=== PATIENT | male | born 1955 | race Caucasian/White ===

== ENCOUNTER 2020-02-02 17:47 | Emergency (ER) | payer MEDICARE, MEDICAID, SELFPAY ==
[2020-02-02] VITALS (15 sets, daily range): BP systolic 104–114; BP diastolic 56–79; PULSE 72–89; RESP 20–26; TEMP 36.2; O2SAT 95–99; BMI 25.8
--- NOTE | 2020-02-02 18:15 | DI.RAD.S_ITS ---
PROCEDURE: XR CHEST 1V INDICATIONS: shortness of breath TECHNIQUE: One view of the chest was acquired. COMPARISON: [facility], , CHEST 1 VIEW, 06/23/2017, 13:11. FINDINGS: Surgical changes and devices: None. Lungs and pleura: Lungs are abnormal with asymmetric right greater than left patchy airspace disease and a subpulmonic pleural effusion or dense consolidation at the right lung base is present.. No loculated pleural effusions or pneumothorax. Mediastinum: Mediastinal contours appear normal. Heart size is normal. Bones and chest wall: No suspicious bony lesions. Overlying soft tissues appear unremarkable. IMPRESSION: Patchy bilateral alveolar edema pattern with either right lower lobe pneumonia or right subpulmonic pleural effusion at the lower 3rd of the right hemithorax. No pneumothorax found. Dictated by: Jose Chapin M.D. on 02/02/2020 at 18:36 Approved by: Jose Chapin M.D. on 02/02/2020 at 18:37
--- NOTE | 2020-02-02 18:19 | ED.SOB ---
HPI - SOB/Dyspnea General Chief Complaint: Shortness of Breath/Dyspnea Stated Complaint: Breathing Problems Time Seen by Provider: 02/02/20 18:03 Source: patient Mode of arrival: Wheelchair Limitations: no limitations History of Present Illness HPI Narrative: 64M nonsmoker with history of CAD, CKD (HD , , ) presents with gradually worsening SOB over the past month. He denies fever, chills, N/V. He did not complete his full run of HD on Sunday. He has had some cough but denies productive sputum or hemoptysis. He states his SOB is worse with exertion and laying flat. Of note, he has prescreening for possible cardiac stent placement in a few weeks and had a L hip revision one month ago. Patient denies exposure to COVID and was last tested about 10 days ago. Finally, patient had alterations in Spironolactone a few weeks ago as his pressures have been running low. He initially contacted his primary care provider and was then referred to the walk-in clinic for evaluation, finally being referred to the emergency department for a more rapid and complete assessment of his (likely) multifactorial dyspnea. MD Complaint: shortness of breath Onset (ago): day(s) Severity: moderate Consistency/Duration: constant Relieving factors: rest Exacerbating factors: lying flat and exertion Treatment prior to arrival: none Related Data Home oxygen amount: none Home Medications Medication Instructions Recorded Confirmed VITAMIN D (Vitamin D3) 2,000 units PO QDAY #0 06/23/17 amlodipine [Norvasc] 5 mg PO QDAY #0 06/23/17 aspirin 81 mg PO QDAY #0 06/23/17 diclofenac sodium 50 mg PO QDAY #0 06/23/17 fluticasone propionate 1 spray INTRANASAL BID #0 06/23/17 metoprolol succinate 50 mg PO QDAY #0 06/23/17 pantoprazole 40 mg PO QDAY #0 06/23/17 pramipexole [Mirapex] 25 mg PO QDAY #0 06/23/17 rosuvastatin [Crestor] 10 mg PO QDAY #0 06/23/17 sevelamer carbonate [Renvela] 800 mg PO QDAY #0 06/23/17 terazosin 10 mg PO QDAY #0 06/23/17 Allergies Allergy/AdvReac Type Severity Reaction Status Date / Time lisinopril [LISINOPRIL] AdvReac Unknown COUGH Unverified 06/20/17 12:43 Review of Systems Constitutional Constitutional: Denies chills, Denies fatigue, Denies fever(s), Denies frequent falls, Denies lethargy and Denies weakness Eyes Eyes: Denies change in vision, Denies eye discharge, Denies irritation and Denies loss of vision ENT Ears, Nose, Mouth, and Throat: Denies change in voice, Denies dizziness, Denies neck pain, Denies sore throat and Denies throat swelling Cardiovascular Cardiovascular: Denies chest pain, Denies irregular heart rhythm, Denies lightheadedness, Denies palpitations, Reports dyspnea, Denies dyspnea on exertion and Denies orthopnea Respiratory Respiratory: Reports cough, Reports dyspnea, Denies dyspnea on exertion and Denies wheezing Gastrointestinal Gastrointestinal: Denies abdominal pain, Denies change in bowel habits, Denies diarrhea, Denies nausea and Denies vomiting Musculoskeletal Musculoskeletal: Denies neck pain and Denies numbness Integumentary/Breasts Skin/Breast: Denies pruritus, Denies erythema, Denies rash and Denies wounds Neurologic Neurologic: Denies behavioral changes, Denies confusion, Denies dizziness, Denies frequent falls, Denies loss of vision, Denies numbness and Denies weakness Psychiatric Psychiatric: Denies anxiety, Denies behavioral changes, Denies confusion, Denies depression, Denies homicidal ideation and Denies suicidal ideation Endocrine Endocrine: Denies fatigue, Denies flushing and Denies palpitations Hematologic/Lymphatic Hematologic/Lymphatic: Denies easy bruising Allergic/Immunologic Allergic/Immunologic: Denies urticaria, Denies throat swelling and Denies wheezing Patient History Social History Smoking Status: Never smoker Smoking Status: Never smoker alcohol intake frequency: 0-2 drinks per day Substance Use Type: does not use Exam Narrative Exam Narrative: GENERAL: [64] year old patient appears older than stated age. Obviously chronically ill but no evidence of significant respiratory distress while at rest. HEAD: Atraumatic. Normocephalic. EYES: Pupils equal round and reactive. Extraocular motions intact. No scleral icterus. No injection or drainage. ENT: Nose without bleeding, purulent drainage. Throat without erythema, tonsillar hypertrophy or exudate. Airway patent. NECK: Trachea midline. Non tender CARDIOVASCULAR: Regular rate and rhythm without murmurs, gallops, or rubs. RESPIRATORY: No significant work of breathing, crackles noted in both bases. GASTROINTESTINAL: Abdomen soft, non-tender, nondistended. EXTREMITIES: 2+ pitting edema B/L LE. Palpable thrill left arm BACK: Nontender without deformity or crepitance. No flank tenderness. NEURO: AOx3. SKIN: No rash or erythema of visible areas Initial Vital Signs Initial Vital Signs: Vital Signs Pulse Rate 84 02/02/20 18:02 Respiratory Rate 22 02/02/20 18:02 Pulse Oximetry 98 02/02/20 18:02 Course Orders Ordered: ED Orders 02/02/20 18:14 Consult to Respiratory Therapy Evaluate & Treat EKG-12 Lead Stat 02/02/20 18:15 XR chest 1V Stat 02/02/20 18:20 Complete Blood Count AUTO DIFF Stat Comprehensive Metabolic Panel Stat Lactate (Lactic Acid) Stat Magnesium Stat NT-proBNP (BNP-Adult 18+) Stat Phosphorous Stat Procalcitonin Stat Prothrombin Time INR Stat Troponin & CK Cardiac Panel Stat 02/02/20 19:39 CT angio chest PE protocol Stat 02/02/20 19:40 COVID19 Stat 02/02/20 19:41 Blood Culture Stat 02/02/20 19:45 Sputum Culture Stat 02/02/20 20:32 EKG-12 Lead Stat Discontinued Medications Acetaminophen (Acetaminophen 325 Mg Tablet) 650 mg PO NOW ONE Stop: 02/02/20 20:29 Last Admin: 02/02/20 20:46 Dose: 650 mg Documented by: JOSE LUIS Aspirin (Aspirin 81 Mg Chew Tab) 324 mg PO NOW ONE Stop: 02/02/20 21:32 Last Admin: 02/02/20 22:32 Dose: 324 mg Documented by: JOSE LUIS Ceftriaxone Sodium/Dextrose (Rocephin) 1 gm in 50 mls @ 100 mls/hr IV NOW ONE Stop: 02/02/20 19:43 Last Infusion: 02/02/20 22:14 Dose: 0 mls/hr Documented by: JOSE LUIS Infusion: 02/02/20 20:13 Dose: 0 mls/hr Documented by: JOSE LUIS Admin: 02/02/20 19:37 Dose: 100 mls/hr Documented by: JOSE LUIS Azithromycin 500 mg/ Dextrose 250 mls @ 250 mls/hr IV NOW ONE Stop: 02/02/20 20:30 Last Infusion: 02/02/20 22:37 Dose: 0 mls/hr Documented by: Admin: 02/02/20 20:46 Dose: 250 mls/hr Documented by: JOSE LUIS Consultations Consultation #1: initial call to nephrology to discuss IV contrast in this patient, he quickly states yes. Also discussed that patient will be coming to [place] for admission. No need for emergent HD Consultation #2: [id number] - call to cardiology at [facility] 2114 - repeat call to cardio to discuss troponin prior to hospitalist 2129 - repeat page to cardio No immediate concern for Troponin. Recommends addressing volume overload while following Consultation #3: Dr. Woods ([place] hospitalist) happy to accept Vital Signs Vital signs: Vital Signs - 8 hr 02/02/20 18:02 02/02/20 18:04 02/02/20 18:30 Temperature 97.1 F L Pulse Rate 84 89 80 Respiratory Rate 22 20 24 Blood Pressure 114/79 Pulse Oximetry 98 95 02/02/20 19:00 02/02/20 19:30 02/02/20 19:58 Temperature Pulse Rate 80 81 84 Respiratory Rate 21 24 24 Blood Pressure 105/64 Pulse Oximetry 02/02/20 20:00 02/02/20 20:30 02/02/20 21:00 Temperature Pulse Rate 84 81 83 Respiratory Rate 24 24 25 H Blood Pressure Pulse Oximetry 98 96 02/02/20 21:30 02/02/20 22:00 02/02/20 22:27 Temperature Pulse Rate 82 78 83 Respiratory Rate 24 20 Blood Pressure Pulse Oximetry 96 95 02/02/20 22:30 02/02/20 22:53 02/02/20 23:00 Temperature Pulse Rate 81 73 72 Respiratory Rate 26 H 22 21 Blood Pressure 104/56 L Pulse Oximetry 99 MDM - SOB/Dyspnea Lab Data Result diagrams: 02/02/20 18:20 02/02/20 18:20 Labs: Lab Results 02/02/20 02/02/20 02/02/20 Range/Units 18:20 18:20 18:20 WBC 6.3 (4.5-11.0) X10^3/uL RBC 3.73 L (4.5-5.9) X10^6/uL Hgb 10.1 L (13.5-17.5) g/dL Hct 32.7 L (41-53) % MCV 87.5 (80-100) fL MCH 27.1 (26-34) PG MCHC 30.9 (30-36) % RDW 18.2 H (11.6-14.8) % Plt Count 236 (150-400) X10^3/uL Neut % (Auto) 79.3 H (50-75) % Lymph % (Auto) 11.1 L (25-40) % [place] % (Auto) 8.0 (3-14) % Eos % (Auto) 0.9 L (2-4) % Baso % (Auto) 0.7 (0-2) % Neut # (Auto) 5000 (9690-6606) /uL Lymph # (Auto) 700 L (7392-6043) /uL [place] # (Auto) 500 (0-900) /uL Eos # (Auto) 100 (0-450) /uL Baso # (Auto) 0 (0-100) /uL PT 18.2 H (10.1-12.7) SECONDS INR 1.6 H (0.9-1.3) Sodium (137-145) mmol/L Potassium (3.4-5.1) mmol/L Chloride (98-107) mmol/L Carbon Dioxide (22-32) mmol/L BUN (9-20) mg/dL Creatinine (0.66-1.25) mg/dL Estimated GFR (>60) mL/min BUN/Creatinine Ratio (6-22) Glucose (80-110) mg/dL Lactate (0.7-2.1) mmol/L Calcium (8.4-10.2) mg/dL Phosphorus 8.1 H (2.3-3.7) mg/dL Magnesium 2.3 (1.6-2.3) mg/dL Total Bilirubin (0.2-1.3) mg/dL AST (17-59) IU/L ALT (<50) IU/L Alkaline Phosphatase (38-126) U/L Total Creatine Kinase 45 L (55-170) U/L CK-MB (CK-2) TNP CK-MB (CK-2) Rel Index TNP Troponin I 2.660 H* (0.01-0.034) ng/mL NT-Pro-B Natriuret Pep [id number] H (<125) pg/mL Total Protein (6.3-8.2) g/dL Albumin (3.5-5.0) g/dL Globulin (1.7-4.1) g/dL Albumin/Globulin Ratio (1.0-2.8) Procalcitonin (<0.5) ng/mL COVID-19 PCR (Negative) 02/02/20 02/02/20 02/02/20 Range/Units 18:20 18:20 18:20 WBC (4.5-11.0) X10^3/uL RBC (4.5-5.9) X10^6/uL Hgb (13.5-17.5) g/dL Hct (41-53) % MCV (80-100) fL MCH (26-34) PG MCHC (30-36) % RDW (11.6-14.8) % Plt Count (150-400) X10^3/uL Neut % (Auto) (50-75) % Lymph % (Auto) (25-40) % [place] % (Auto) (3-14) % Eos % (Auto) (2-4) % Baso % (Auto) (0-2) % Neut # (Auto) (8451-2109) /uL Lymph # (Auto) (2822-5080) /uL [place] # (Auto) (0-900) /uL Eos # (Auto) (0-450) /uL Baso # (Auto) (0-100) /uL PT (10.1-12.7) SECONDS INR (0.9-1.3) Sodium 140 (137-145) mmol/L Potassium 5.6 H (3.4-5.1) mmol/L Chloride 99 (98-107) mmol/L Carbon Dioxide 26 (22-32) mmol/L BUN 65 H (9-20) mg/dL Creatinine 8.99 H* (0.66-1.25) mg/dL Estimated GFR 6.0 L (>60) mL/min BUN/Creatinine Ratio 7.2 (6-22) Glucose 105 (80-110) mg/dL Lactate 1.6 (0.7-2.1) mmol/L Calcium 9.2 (8.4-10.2) mg/dL Phosphorus (2.3-3.7) mg/dL Magnesium (1.6-2.3) mg/dL Total Bilirubin 0.6 (0.2-1.3) mg/dL AST 206 H (17-59) IU/L ALT 113 H (<50) IU/L Alkaline Phosphatase 96 (38-126) U/L Total Creatine Kinase (55-170) U/L CK-MB (CK-2) CK-MB (CK-2) Rel Index Troponin I (0.01-0.034) ng/mL NT-Pro-B Natriuret Pep (<125) pg/mL Total Protein 7.4 (6.3-8.2) g/dL Albumin 3.9 (3.5-5.0) g/dL Globulin 3.5 (1.7-4.1) g/dL Albumin/Globulin Ratio 1.1 (1.0-2.8) Procalcitonin 0.48 (<0.5) ng/mL COVID-19 PCR (Negative) 02/02/20 Range/Units 19:40 WBC (4.5-11.0) X10^3/uL RBC (4.5-5.9) X10^6/uL Hgb (13.5-17.5) g/dL Hct (41-53) % MCV (80-100) fL MCH (26-34) PG MCHC (30-36) % RDW (11.6-14.8) % Plt Count (150-400) X10^3/uL Neut % (Auto) (50-75) % Lymph % (Auto) (25-40) % [place] % (Auto) (3-14) % Eos % (Auto) (2-4) % Baso % (Auto) (0-2) % Neut # (Auto) (3156-2133) /uL Lymph # (Auto) (5026-1466) /uL [place] # (Auto) (0-900) /uL Eos # (Auto) (0-450) /uL Baso # (Auto) (0-100) /uL PT (10.1-12.7) SECONDS INR (0.9-1.3) Sodium (137-145) mmol/L Potassium (3.4-5.1) mmol/L Chloride (98-107) mmol/L Carbon Dioxide (22-32) mmol/L BUN (9-20) mg/dL Creatinine (0.66-1.25) mg/dL Estimated GFR (>60) mL/min BUN/Creatinine Ratio (6-22) Glucose (80-110) mg/dL Lactate (0.7-2.1) mmol/L Calcium (8.4-10.2) mg/dL Phosphorus (2.3-3.7) mg/dL Magnesium (1.6-2.3) mg/dL Total Bilirubin (0.2-1.3) mg/dL AST (17-59) IU/L ALT (<50) IU/L Alkaline Phosphatase (38-126) U/L Total Creatine Kinase (55-170) U/L CK-MB (CK-2) CK-MB (CK-2) Rel Index Troponin I (0.01-0.034) ng/mL NT-Pro-B Natriuret Pep (<125) pg/mL Total Protein (6.3-8.2) g/dL Albumin (3.5-5.0) g/dL Globulin (1.7-4.1) g/dL Albumin/Globulin Ratio (1.0-2.8) Procalcitonin (<0.5) ng/mL COVID-19 PCR Negative (Negative) Imaging Data Chest x-ray: Radiologist's Impression: [address] [id number] ReportSigned Patient: Laureano Anand KMR#: [id number]: 7Acct:[id number]/Sex: 64 / MDate of Service: 02/02/20Loc: EDAccession Number: [id number] Procedure: XR chest 1V Ordering Provider: Guanako Uriarte D.O. PROCEDURE: XR CHEST 1V INDICATIONS: shortness of breath TECHNIQUE: One view of the chest was acquired. COMPARISON: [facility], CHEST 1 VIEW, 06/23/2017, 13:11. FINDINGS: Surgical changes and devices: None. Lungs and pleura: Lungs are abnormal with asymmetric right greater than left patchy airspace disease and a subpulmonic pleural effusion or dense consolidation at the right lung base is present.. No loculated pleural effusions or pneumothorax. Mediastinum: Mediastinal contours appear normal. Heart size is normal. Bones and chest wall: No suspicious bony lesions. Overlying soft tissues appear unremarkable. IMPRESSION: Patchy bilateral alveolar edema pattern with either right lower lobe pneumonia or right subpulmonic pleural effusion at the lower 3rd of the right hemithorax. No pneumothorax found. Dictated by: Jose Chapin M.D. on 02/02/2020 at 18:36 Approved by: Jose Chapin M.D. on 02/02/2020 at 18:37 CT scan - chest: Radiologist's Impression: Laureano Anand 64 M [address] [id number] Scan ReportSigned Patient: Laureano Anand KMR#: [id number]: [id number]:[id number]/Sex: 64 / MDate of Service: 02/02/20Loc: EDAccession Number: [id number] Procedure: CT angio chest PE protocol Ordering Provider: Guanako Uriarte D.O. PROCEDURE: CT ANGIO CHEST PE PROTOCOL INDICATIONS: short of breath, recent left hip surgery, dialysis patient TECHNIQUE: After the administration of intravenous contrast, 2 mm thick sections acquired from the pulmonary apices to the posterior costophrenic angles. 3-dimensional maximum intensity projection (MIP) coronal and sagittal reformats were then acquired through the thorax. For radiation dose reduction, the following was used: automated exposure control, adjustment of mA and/or kV according to patient size. COMPARISON: [facility], CR, XR CHEST 1V, 02/02/2020, 18:19. FINDINGS: Image quality: Excellent. Pulmonary arteries: Pulmonary arteries are normal in size, and demonstrate no intraluminal filling defects to suggest central pulmonary embolism. Lungs and pleura: Lungs are abnormal with mild atelectasis at the left lung base and area of right lower lobe consolidation is present seen centered on image 97 with scattered air bronchograms within. An adjacent pleural effusion is present, moderately large. No pleural effusions or pneumothorax. Central and peripheral airways are patent. Mediastinum: Heart size is normal, without pericardial effusion. No mediastinal or hilar adenopathy. Thoracic aorta is normal in caliber and enhancement. Esophagus is normal in caliber, without hiatal hernia. Bones and chest wall: No suspicious bony lesions. Ribs and thoracic spine appear intact throughout. Thyroid gland appears normal. No axillary or supraclavicular adenopathy. Abdomen: Visualized upper abdominal solid organs appear normal in the early arterial phase of enhancement. IMPRESSION: Right lower lobe pneumonia pattern, subpulmonic moderately large right effusion. No pulmonary embolus found. Dictated by: Jose Chapin M.D. on 02/02/2020 at 20:04 Approved by: Jose Chapin M.D. on 02/02/2020 at 20:08 Critical Care Time Critical Care Time Critical Care Time: Yes Total Critical Care Time: 30 Attestation: The high probability of a clinically significant, sudden or life threatening deterioration of the [CV] system(s) required my full and direct attention, intervention and personal management. The aggregate critical care time was [30] minutes. This time is in addition to time spent performing reported procedures but includes the following: [x] Data Review and interpretation [x] Patient assessment and monitoring of vital signs [x] Documentation [x] Medication orders and management Discharge Plan Departure Patient Disposition: [facility] Clinical Impression: Volume overload Acute CHF Qualifiers: Heart failure type: unspecified Qualified Code(s): I50.9 - Heart failure, unspecified Prescriptions: No Action diclofenac sodium 50 MG tablet,delayed release (DR/EC) 50 mg PO QDAY Qty: 0 RF: 0 amlodipine [Norvasc] 5 MG tablet 5 mg PO QDAY Qty: 0 RF: 0 fluticasone propionate 16 GM spray,suspension 1 spray Intranasal BID Qty: 0 RF: 0 terazosin 10 MG capsule 10 mg PO QDAY Qty: 0 RF: 0 rosuvastatin [Crestor] 10 MG tablet 10 mg PO QDAY Qty: 0 RF: 0 metoprolol succinate 50 MG tablet extended release 24 hr 50 mg PO QDAY Qty: 0 RF: 0 pantoprazole 40 MG tablet,delayed release (DR/EC) 40 mg PO QDAY Qty: 0 RF: 0 aspirin 81 MG tablet,delayed release (DR/EC) 81 mg PO QDAY Qty: 0 RF: 0 sevelamer carbonate [Renvela] 800 MG tablet 800 mg PO QDAY Qty: 0 RF: 0 VITAMIN D (Vitamin D3) 2,000 units PO QDAY Qty: 0 RF: 0 pramipexole [Mirapex] 0.125 MG tablet 25 mg PO QDAY Qty: 0 RF: 0 Referrals: Dulce Perdomo PA-C [Primary Care Provider] -
[2020-02-02 18:31] LABS: Add Manual Diff / Slide Review NO; Basophils Absolute Auto 0 /uL (0-100); Basophils Percent Auto 0.7 % (0-2); Eosinophils Absolute Auto 100 /uL (0-450); Eosinophils Percent Auto 0.9 % (2-4); Hematocrit 32.7 % (41-53); Hemoglobin 10.1 g/dL (13.5-17.5); Lymphocytes Absolute Auto 700 /uL (1100-4500); Lymphocytes Percent Auto 11.1 % (25-40); Mean Corpuscular HGB Conc 30.9 % (30-36); Mean Corpuscular Hemoglobin 27.1 PG (26-34); Mean Corpuscular Volume 87.5 fL (80-100); Monocytes Absolute Auto 500 /uL (0-900); Neutrophils Absolute Auto 5000 /uL (1500-7000); Neutrophils Percent Auto 79.3 % (50-75); Platelet Count 236 X10^3/uL (150-400); Red Blood Cell Count 3.73 X10^6/uL (4.5-5.9); Red Cell Distribution Width 18.2 % (11.6-14.8); White Blood Cell Count 6.3 X10^3/uL (4.5-11.0)
[2020-02-02 18:38] LABS: INR 1.6 (0.9-1.3); Prothrombin Time 18.2 SECONDS (10.1-12.7)
[2020-02-02 19:00] LABS: Lactate (Lactic Acid) 1.6 mmol/L (0.7-2.1)
[2020-02-02 19:01] LABS: Creatine Kinase 45 U/L (55-170); Magnesium 2.3 mg/dL (1.6-2.3); Phosphorous 8.1 mg/dL (2.3-3.7)
[2020-02-02 19:05] LABS: Alanine Aminotransferase 113 IU/L (<50); Albumin 3.9 g/dL (3.5-5.0); Albumin Globulin Ratio 1.1 (1.0-2.8); Alkaline Phosphatase 96 U/L (38-126); Aspartate Aminotransferase 206 IU/L (17-59); BUN Creatinine Ratio 7.2 (6-22); Bilirubin Total 0.6 mg/dL (0.2-1.3); Blood Urea Nitrogen 65 mg/dL (9-20); Calcium 9.2 mg/dL (8.4-10.2); Carbon Dioxide 26 mmol/L (22-32); Chloride 99 mmol/L (98-107); Globulin 3.5 g/dL (1.7-4.1); Glucose 105 mg/dL (80-110); HEMOLYSIS 21 (0-50); Sodium 140 mmol/L (137-145); Total Protein 7.4 g/dL (6.3-8.2)
[2020-02-02 19:10] LABS: Potassium 5.6 mmol/L (3.4-5.1)
[2020-02-02 19:17] LABS: Procalcitonin 0.48 ng/mL (<0.5)
[2020-02-02] MEDS: CEFTRIAXONE 1 GM/50 ML FROZ.PIGGY IV (19:37)
--- NOTE | 2020-02-02 19:39 | DI.CT.S_ITS ---
PROCEDURE: CT ANGIO CHEST PE PROTOCOL INDICATIONS: short of breath, recent left hip surgery, dialysis patient TECHNIQUE: After the administration of intravenous contrast, 2 mm thick sections acquired from the pulmonary apices to the posterior costophrenic angles. 3-dimensional maximum intensity projection (MIP) coronal and sagittal reformats were then acquired through the thorax. For radiation dose reduction, the following was used: automated exposure control, adjustment of mA and/or kV according to patient size. COMPARISON: [facility], CR, XR CHEST 1V, 02/02/2020, 18:19. FINDINGS: Image quality: Excellent. Pulmonary arteries: Pulmonary arteries are normal in size, and demonstrate no intraluminal filling defects to suggest central pulmonary embolism. Lungs and pleura: Lungs are abnormal with mild atelectasis at the left lung base and area of right lower lobe consolidation is present seen centered on image 97 with scattered air bronchograms within. An adjacent pleural effusion is present, moderately large. No pleural effusions or pneumothorax. Central and peripheral airways are patent. Mediastinum: Heart size is normal, without pericardial effusion. No mediastinal or hilar adenopathy. Thoracic aorta is normal in caliber and enhancement. Esophagus is normal in caliber, without hiatal hernia. Bones and chest wall: No suspicious bony lesions. Ribs and thoracic spine appear intact throughout. Thyroid gland appears normal. No axillary or supraclavicular adenopathy. Abdomen: Visualized upper abdominal solid organs appear normal in the early arterial phase of enhancement. IMPRESSION: Right lower lobe pneumonia pattern, subpulmonic moderately large right effusion. No pulmonary embolus found. Dictated by: Jose Chapin M.D. on 02/02/2020 at 20:04 Approved by: Jose Chapin M.D. on 02/02/2020 at 20:08
[2020-02-02 19:50] LABS: NT-proBNP (BNP-Adult 18+) 210000 pg/mL (<125)
[2020-02-02 20:22] LABS: COVID19 -Nasal RAPID Negative (Negative)
[2020-02-02] MEDS: AZITHROMYCIN 500 MG in DEXTROSE 5% IN WATER 250 ML IV (20:46)
[2020-02-02] MEDS: ACETAMINOPHEN 325 MG TABLET 650 MG PO (20:46)
[2020-02-02] MEDS: ASPIRIN 81 MG CHEW TAB 324 MG PO (22:32)
== END 2020-02-02 23:27 | disposition short-term general hospital (02) ==
PROVIDERS: Emergency Provider Emergency Medicine; Family Provider Family Medicine; PCP Physician Assistant
DX: I50.9 Heart failure, unspecified (principal); E87.70 Fluid overload, unspecified; N19 Unspecified kidney failure; Z99.2 Dependence on renal dialysis; R05 Cough
CPT/HCPCS: 36415; 71045; 71275; 80053; 82550; 83605; 83735; 83880; 84100; 84145; 84484; 85025; 85610; 87040; 87070; 87077; 87186; 87205; 87635; 93005; 93010; 96365; 96366; 96367; 99284; 99291

== ENCOUNTER → 2020-02-23 13:09 | Outpatient (CLI) | payer MEDICARE, MEDICAID, OTHER, SELFPAY ==
--- NOTE | 2020-02-23 | DI.RAD.S_ITS ---
PROCEDURE: XR HIP W PEL IF DONE LT 2V INDICATIONS: Hx of total hip replacement follow up TECHNIQUE: AP pelvis with lateral view(s) of the left hip(s). COMPARISON: [facility], MR, HIP WITHOUT CONTRAST, 05/21/2017, 16:13. [facility], CT, CT PELVIS WITHOUT CONTRAST, 12/31/2019, 12:37. [facility] [place], CR, XR FEMUR 2+ VIEWS LEFT, 05/04/2017, 15:57. FINDINGS: Bones: Diffuse osteopenia. Left hip arthroplasty is present. There is marked cortical thinning and chronic deformity of the left acetabulum, and bone loss. Some of this may be postsurgical in nature, although no more recent comparison radiographs available.Moderate right hip joint degeneration. Soft tissues: Scattered vascular calcifications. IMPRESSION: Status post left hip arthroplasty. Intact hardware. Chronic progressive left acetabular bone loss and cortical thinning, potentially reflecting postsurgical sequela. Comparison with additional more recent prior radiographs if obtainable would be helpful. Dictated by: Andrea Purdy M.D. on 02/23/2020 at 14:11 Approved by: Andrea Purdy M.D. on 02/23/2020 at 14:31
== END ==
PROVIDERS: Family Provider Family Medicine; PCP Physician Assistant; Referring Provider Orthopaedic Surgery; Visit Provider Orthopaedic Surgery
DX: Z47.1 Aftercare following joint replacement surgery (principal); Z96.642 Presence of left artificial hip joint; M16.11 Unilateral primary osteoarthritis, right hip
CPT/HCPCS: 73502

== ENCOUNTER 2020-02-25 16:25 | Emergency (ER) | payer MEDICARE, OTHER, MEDICAID, SELFPAY ==
[2020-02-25 16:33] VITALS: PULSE 95
[2020-02-25 16:34] VITALS: BP 104/69; PULSE 96
[2020-02-25 16:40] VITALS: BP 104/69; PULSE 94; RESP 17; TEMP 36.6; O2SAT 96; BMI 23.7
--- NOTE | 2020-02-25 16:58 | ED_ITS ---
HPI - Extremity Problem <Kelly YoussefSKYLA vega - Last Filed: 02/25/20 20:41> General Chief complaint: Extremity Problem,Nontraumatic Stated complaint: Ring finger Left hand turning black, alec alnicola Time Seen by Provider: 02/25/20 16:32 Source: patient Mode of arrival: Wheelchair History of Present Illness HPI Narrative: 64yo male with a history of CAD, CKD on dialysis, patient states approximately 10 days ago was discharge from after the placing of coronary artery stents. Patient states at this time he noticed some blackening of his left 4th finger. Patient states this originally started as a blister dom roximately 10 weeks ago. However, he noticed it started to get more black. Patient states that at he had a scan to check for blood flow and he was told that his finger had adequate blood flow, it did not have anything to do with the fistula. Patient was discharged to his PCP, he states he has a dermatology appointment this Sunday. However, yesterday he had dialysis and noticed increasing pain in his finger. He denies any worsening or spreading of the blackness, the pain yesterday is what brought him in today. He states the pain happen during dialysis and stopped as soon as his dialysis session had been stopped. Patient denies any symptoms such as cough, chest pain, shortness of breath, dizziness,, diarrhea, or any other concerns. Related Data Home Medications Medication Instructions Recorded Confirmed VITAMIN D (Vitamin D3) 2,000 units PO QDAY #0 06/23/17 amlodipine [Norvasc] 5 mg PO QDAY #0 06/23/17 aspirin 81 mg PO QDAY #0 06/23/17 diclofenac sodium 50 mg PO QDAY #0 06/23/17 fluticasone propionate 1 spray INTRANASAL BID #0 06/23/17 metoprolol succinate 50 mg PO QDAY #0 06/23/17 pantoprazole 40 mg PO QDAY #0 06/23/17 pramipexole [Mirapex] 25 mg PO QDAY #0 06/23/17 rosuvastatin [Crestor] 10 mg PO QDAY #0 06/23/17 sevelamer carbonate [Renvela] 800 mg PO QDAY #0 06/23/17 terazosin 10 mg PO QDAY #0 06/23/17 Allergies Allergy/AdvReac Type Severity Reaction Status Date / Time lisinopril [LISINOPRIL] AdvReac Unknown COUGH Unverified 06/20/17 12:43 Review of Systems <SKYLA Michael - Last Filed: 02/25/20 20:41> Review of Systems Narrative: REVIEW OF SYSTEMS: GENERAL: Denies fever or chills. HENT: No head trauma, hearing loss or sore throat. EYES: No loss of vision, double vision, eye pain, or irritation. CARDIOVASCULAR: No chest pain or syncope. RESPIRATORY: No shortness of breath or cough. GASTROINTESTINAL: No nausea, vomiting, diarrhea, or constipation. MUSCULOSKELETAL: Reports finger pain, see HPI. INTEGUMENTARY: Complains of finger discoloration, see HPI. NEURO: No numbness, tingling, memory loss, or confusion. PSYCH: No behavior or mood changes. Patient History <SKYLA Michael - Last Filed: 02/25/20 20:41> Medical History Renal failure Social History Smoking Status: Never smoker Smoking Status: Never smoker alcohol intake frequency: 0-2 drinks per day Substance Use Type: does not use Exam <SKYLA Michael - Last Filed: 02/25/20 20:41> Initial Vital Signs Initial Vital Signs: Vital Signs Pulse Rate 95 H 02/25/20 16:33 PHYSICAL EXAMINATION: GENERAL: Alert, well-appearing, answers questions promptly. HENT: Normocephalic, atraumatic. Ear canals patent. Oral mucosa is pink and moist. EYES: Conjunctiva pink, sclera white, no periorbital swelling. CARDIOVASCULAR: Regular rate. RESPIRATORY: Normal respiratory rate, trachea midline, airway patent. No st ridor, nasal flaring or accessory muscle use. MUSCULOSKELETAL: There is a 3 cm x 1 0.5 cm area of dry gangrenous tissue noted to the medial aspect of left 4th finger tip and nail. Skin appears to be dry and peeling up to the MIP joint. No surrounding erythema or significant swelling. Patient denies any tenderness to palpation at this time, no pain to palpation of left arm fistula.. EXTREMITIES: CMS intact. Moves all extremities. SKIN: Warm, dry, soft, appropriate color for ethnicity. No lesions, rashes, or wounds. NEURO: Alert and Oriented X 3. Good coordination. No ataxia, or sensory deficits, or cognitive issues. PSYCH: Appropriate affect and mood. <Leona Osborne DO - Last Filed: 02/26/20 07:45> Initial Vital Signs Initial Vital Signs: Vital Signs Pulse Rate 95 H 02/25/20 16:33 Course <Kelly RolandSKYLA - Last Filed: 02/25/20 20:41> Course Course Narrative: Upon re-evaluation, patient states that he was seen by wound care nurse while he was at . He was told to refrain from putting anything on the area otherwise it may increased risk for infection. He stated that the dialysis nurse was requesting an x-ray of his finger to ensure no worsening symptoms. Attempted to order venous and arterial Dopplers of left arm. [employer] stated that this cannot be completed here as patient has a graft. Dr. Osborne spoke with Radiology, Dr. Purdy about this, during his discussion with the [employer], he reported that this cannot be done. I spoke to transfer center and requested a consult, requested medical records. Calls were not return before patient left Against Medical Advice. Patient is asking to leave Against Medical Advice, I explained extensively that I do recommend further testing. We discussed that condition could worsen and is always a possibility if he leaves without complete medical care. Patient verbalized understanding and states that he has things to do. He agrees to follow up with his provider in 2 days. Orders Ordered: ED Orders 02/25/20 17:02 XR hand RT min 3V Stat 02/25/20 17:40 C-Reactive Protein Quant Stat Complete Blood Count AUTO DIFF Stat Comprehensive Metabolic Panel Stat Erythrocyte Sedimentation Rate Stat Lactate (Lactic Acid) Stat Partial Thromboplastin Time Stat Prothrombin Time INR Stat Consultations Consultation #1: Patient staffed with Dr. Osborne who also viewed the patient. Vital Signs Vital signs: Vital Signs - 8 hr 02/25/20 16:33 02/25/20 16:34 02/25/20 16:40 Temperature 98 F Pulse Rate 95 H 96 H 94 H Respiratory Rate 17 Blood Pressure 104/69 104/69 Pulse Oximetry 96 02/25/20 17:00 Temperature Pulse Rate 96 H Respiratory Rate Blood Pressure 110/72 Pulse Oximetry 94 <Leona Osborne DO - Last Filed: 02/26/20 07:45> Orders Ordered: ED Orders 02/25/20 17:02 XR hand RT min 3V Stat 02/25/20 17:40 C-Reactive Protein Quant Stat Complete Blood Count AUTO DIFF Stat Comprehensive Metabolic Panel Stat Erythrocyte Sedimentation Rate Stat Lactate (Lactic Acid) Stat Partial Thromboplastin Time Stat Prothrombin Time INR Stat Vital Signs Vital signs: Vital Signs - 8 hr 02/25/20 16:33 02/25/20 16:34 02/25/20 16:40 Temperature 98 F Pulse Rate 95 H 96 H 94 H Respiratory Rate 17 Blood Pressure 104/69 104/69 Pulse Oximetry 96 02/25/20 17:00 Temperature Pulse Rate 96 H Respiratory Rate Blood Pressure 110/72 Pulse Oximetry 94 MDM - Extremity (Nontraumatic) <SKYLA Michael - Last Filed: 02/25/20 20:41> Medical Records Attestation: I reviewed the patient's medical records. Lab Data Attestation: I reviewed the patient's lab results. Result diagrams: 02/25/20 17:40 02/25/20 17:40 Labs: Lab Results 02/25/20 02/25/20 02/25/20 Range/Units 17:40 17:40 17:40 WBC 7.0 (4.5-11.0) X10^3/uL RBC 3.50 L (4.5-5.9) X10^6/uL Hgb 9.5 L (13.5-17.5) g/dL Hct 30.6 L (41-53) % MCV 87.5 (80-100) fL MCH 27.2 (26-34) PG MCHC 31.1 (30-36) % RDW 19.1 H (11.6-14.8) % Plt Count 260 (150-400) X10^3/uL Neut % (Auto) 83.1 H (50-75) % Lymph % (Auto) 8.5 L (25-40) % [place] % (Auto) 6.3 (3-14) % Eos % (Auto) 1.4 L (2-4) % Baso % (Auto) 0.7 (0-2) % Neut # (Auto) 5800 (2982-5920) /uL Lymph # (Auto) 600 L (5552-7125) /uL [place] # (Auto) 400 (0-900) /uL Eos # (Auto) 100 (0-450) /uL Baso # (Auto) 0 (0-100) /uL ESR 68 H (0-15) MM/HR PT (10.1-12.7) SECONDS INR (0.9-1.3) APTT (26.4-36.2) SECONDS Sodium 144 (137-145) mmol/L Potassium 4.3 (3.4-5.1) mmol/L Chloride 104 (98-107) mmol/L Carbon Dioxide 29 (22-32) mmol/L BUN 52 H (9-20) mg/dL Creatinine 7.65 H* (0.66-1.25) mg/dL Estimated GFR 7.2 L (>60) mL/min BUN/Creatinine Ratio 6.8 (6-22) Glucose 102 (80-110) mg/dL Lactate 1.1 (0.7-2.1) mmol/L Calcium 9.9 (8.4-10.2) mg/dL Total Bilirubin 0.7 (0.2-1.3) mg/dL AST 27 (17-59) IU/L ALT 28 (<50) IU/L Alkaline Phosphatase 157 H (38-126) U/L C-Reactive Protein (<1.0) mg/dL Total Protein 7.6 (6.3-8.2) g/dL Albumin 3.9 (3.5-5.0) g/dL Globulin 3.7 (1.7-4.1) g/dL Albumin/Globulin Ratio 1.1 (1.0-2.8) 02/25/20 02/25/20 Range/Units 17:40 17:40 WBC (4.5-11.0) X10^3/uL RBC (4.5-5.9) X10^6/uL Hgb (13.5-17.5) g/dL Hct (41-53) % MCV (80-100) fL MCH (26-34) PG MCHC (30-36) % RDW (11.6-14.8) % Plt Count (150-400) X10^3/uL Neut % (Auto) (50-75) % Lymph % (Auto) (25-40) % [place] % (Auto) (3-14) % Eos % (Auto) (2-4) % Baso % (Auto) (0-2) % Neut # (Auto) (5457-2519) /uL Lymph # (Auto) (9707-9076) /uL [place] # (Auto) (0-900) /uL Eos # (Auto) (0-450) /uL Baso # (Auto) (0-100) /uL ESR (0-15) MM/HR PT 16.6 H (10.1-12.7) SECONDS INR 1.5 H (0.9-1.3) APTT 32 (26.4-36.2) SECONDS Sodium (137-145) mmol/L Potassium (3.4-5.1) mmol/L Chloride (98-107) mmol/L Carbon Dioxide (22-32) mmol/L BUN (9-20) mg/dL Creatinine (0.66-1.25) mg/dL Estimated GFR (>60) mL/min BUN/Creatinine Ratio (6-22) Glucose (80-110) mg/dL Lactate (0.7-2.1) mmol/L Calcium (8.4-10.2) mg/dL Total Bilirubin (0.2-1.3) mg/dL AST (17-59) IU/L ALT (<50) IU/L Alkaline Phosphatase (38-126) U/L C-Reactive Protein 4.8 H (<1.0) mg/dL Total Protein (6.3-8.2) g/dL Albumin (3.5-5.0) g/dL Globulin (1.7-4.1) g/dL Albumin/Globulin Ratio (1.0-2.8) Imaging Data Extremity x-ray #1: Radiologist's Impression: [address] [id number] ReportSigned Patient: Laureano Anand KMR#: [id number]: 7Acct:[id number]/Sex: 64 / MDate of Service: 02/25/20Loc: EDAccession Number: [id number] Procedure: XR hand RT min 3V Ordering Provider: Kelly Roland PROCEDURE: XR HAND RT MIN 3V INDICATIONS: L 4th finger, r/o osteomyelitis TECHNIQUE: 3 views of the hand(s) acquired. COMPARISON: None. FINDINGS: Suboptimal evaluation due to technical reasons, probably grid artifact and underexposure Bones: No fractures or dislocations. Carpal bones are normally aligned. No suspicious bony lesions. Soft tissues: There are numerous soft tissue , probably vascular calcifications. IMPRESSION: No focal osseous destruction to suggest advanced osteomyelitis. If there is persistent clinical concern, continued short interval radiographic followup or contrast enhanced MRI could be performed to assess for early infection. Markedly suboptimal examination due to technical reasons above. Dictated by: Andrea Purdy M.D. on 02/25/2020 at 17:22 Approved by: Andrea Purdy M.D. on 02/25/2020 at 17:25 [facility] Narrative Medical decision making narrative: 64-year-old male presenting to the emergency department for gangrenous left ring finger. Less concern for osteomyelitis given no osteo lesions found on x-ray. Wound definitely appears to have dry gangrenous tissue however, no surrounding infection such as erythema, swelling, or purulent drainage noted. Patient is hemodynamically stable, non tachycardic non tachypneic, and afebrile. Attempted to obtain venous and arterial studies of patient's arm, distribution tech stated that the cannot be done here as patient a graft and radiologist cannot read the studies. Attempted to negotiate lower abdominal Dopplers but was told that this cannot be done as well. Attempted to contact for records in consultation of further workup. However, patient chose to leave Against Medical Advice. After discussion about how condition could worsen, patient agreed understanding and still stated that he would like to leave. He was encouraged to follow up with his doctor, who he was scheduled to see in the next 2 days. Return precautions given for new or worsening symptoms. Patient agreed to plan of care verbalized understanding. <Leona Osborne, DO - Last Filed: 02/26/20 07:45> Lab Data Labs: Lab Results 02/25/20 02/25/20 02/25/20 Range/Units 17:40 17:40 17:40 WBC 7.0 (4.5-11.0) X10^3/uL RBC 3.50 L (4.5-5.9) X10^6/uL Hgb 9.5 L (13.5-17.5) g/dL Hct 30.6 L (41-53) % MCV 87.5 (80-100) fL MCH 27.2 (26-34) PG MCHC 31.1 (30-36) % RDW 19.1 H (11.6-14.8) % Plt Count 260 (150-400) X10^3/uL Neut % (Auto) 83.1 H (50-75) % Lymph % (Auto) 8.5 L (25-40) % [place] % (Auto) 6.3 (3-14) % Eos % (Auto) 1.4 L (2-4) % Baso % (Auto) 0.7 (0-2) % Neut # (Auto) 5800 (9784-5589) /uL Lymph # (Auto) 600 L (5175-0984) /uL [place] # (Auto) 400 (0-900) /uL Eos # (Auto) 100 (0-450) /uL Baso # (Auto) 0 (0-100) /uL ESR 68 H (0-15) MM/HR PT (10.1-12.7) SECONDS INR (0.9-1.3) APTT (26.4-36.2) SECONDS Sodium 144 (137-145) mmol/L Potassium 4.3 (3.4-5.1) mmol/L Chloride 104 (98-107) mmol/L Carbon Dioxide 29 (22-32) mmol/L BUN 52 H (9-20) mg/dL Creatinine 7.65 H* (0.66-1.25) mg/dL Estimated GFR 7.2 L (>60) mL/min BUN/Creatinine Ratio 6.8 (6-22) Glucose 102 (80-110) mg/dL Lactate 1.1 (0.7-2.1) mmol/L Calcium 9.9 (8.4-10.2) mg/dL Total Bilirubin 0.7 (0.2-1.3) mg/dL AST 27 (17-59) IU/L ALT 28 (<50) IU/L Alkaline Phosphatase 157 H (38-126) U/L C-Reactive Protein (<1.0) mg/dL Total Protein 7.6 (6.3-8.2) g/dL Albumin 3.9 (3.5-5.0) g/dL Globulin 3.7 (1.7-4.1) g/dL Albumin/Globulin Ratio 1.1 (1.0-2.8) 02/25/20 02/25/20 Range/Units 17:40 17:40 WBC (4.5-11.0) X10^3/uL RBC (4.5-5.9) X10^6/uL Hgb (13.5-17.5) g/dL Hct (41-53) % MCV (80-100) fL MCH (26-34) PG MCHC (30-36) % RDW (11.6-14.8) % Plt Count (150-400) X10^3/uL Neut % (Auto) (50-75) % Lymph % (Auto) (25-40) % [place] % (Auto) (3-14) % Eos % (Auto) (2-4) % Baso % (Auto) (0-2) % Neut # (Auto) (3968-6065) /uL Lymph # (Auto) (5769-5668) /uL [place] # (Auto) (0-900) /uL Eos # (Auto) (0-450) /uL Baso # (Auto) (0-100) /uL ESR (0-15) MM/HR PT 16.6 H (10.1-12.7) SECONDS INR 1.5 H (0.9-1.3) APTT 32 (26.4-36.2) SECONDS Sodium (137-145) mmol/L Potassium (3.4-5.1) mmol/L Chloride (98-107) mmol/L Carbon Dioxide (22-32) mmol/L BUN (9-20) mg/dL Creatinine (0.66-1.25) mg/dL Estimated GFR (>60) mL/min BUN/Creatinine Ratio (6-22) Glucose (80-110) mg/dL Lactate (0.7-2.1) mmol/L Calcium (8.4-10.2) mg/dL Total Bilirubin (0.2-1.3) mg/dL AST (17-59) IU/L ALT (<50) IU/L Alkaline Phosphatase (38-126) U/L C-Reactive Protein 4.8 H (<1.0) mg/dL Total Protein (6.3-8.2) g/dL Albumin (3.5-5.0) g/dL Globulin (1.7-4.1) g/dL Albumin/Globulin Ratio (1.0-2.8) Discharge Plan Departure Patient Disposition: Left Against Medical Advice Clinical Impression: Gangrene Instructions: Gangrene Activity Restrictions/Additional Instructions: Thank you for entrusting me with your care today. As discussed, I do recommend staying for further evaluation and imaging of your arm and finger. However, your x-ray shows no signs of osteomyelitis which is a bone infection. Your laboratory work shows elevated inflammatory markers. Your creatinine is elevated. Please follow-up your provider as scheduled. Return emergency department for any new or worsening symptoms. Prescriptions: No Action diclofenac sodium 50 MG tablet,delayed release (DR/EC) 50 mg PO QDAY Qty: 0 RF: 0 amlodipine [Norvasc] 5 MG tablet 5 mg PO QDAY Qty: 0 RF: 0 fluticasone propionate 16 GM spray,suspension 1 spray Intranasal BID Qty: 0 RF: 0 terazosin 10 MG capsule 10 mg PO QDAY Qty: 0 RF: 0 rosuvastatin [Crestor] 10 MG tablet 10 mg PO QDAY Qty: 0 RF: 0 metoprolol succinate 50 MG tablet extended release 24 hr 50 mg PO QDAY Qty: 0 RF: 0 pantoprazole 40 MG tablet,delayed release (DR/EC) 40 mg PO QDAY Qty: 0 RF: 0 aspirin 81 MG tablet,delayed release (DR/EC) 81 mg PO QDAY Qty: 0 RF: 0 sevelamer carbonate [Renvela] 800 MG tablet 800 mg PO QDAY Qty: 0 RF: 0 VITAMIN D (Vitamin D3) 2,000 units PO QDAY Qty: 0 RF: 0 pramipexole [Mirapex] 0.125 MG tablet 25 mg PO QDAY Qty: 0 RF: 0 Referrals: Dulce Perdomo PA-C [Primary Care Provider] - Stand Alone Forms: Against Medical Advice <Leona Osborne DO - Last Filed: 02/26/20 07:45> Cosign ED Attending Marioature Attestation: I was immediately available in the department for consultation. This documentation has been reviewed. Patient was evaluated by myself, HPI, ROS and exam completed. Agree with evaluation. Patient has area of necrotic tissue on 4th digit on left hand consistent with dry gangrene. Patient states it has not enlarged but has become painful during dialysis. Patient was evaluated while hospitalized for area at [facility], evaluation of vasculature of left arm including fistula was performed per patient and not clot or occlusive disease was noted. Patient states he has appointment with dermatology for area. Planned to obtain repeat imaging of vasculature but US stated they are unable to perform and radiologist Dr. Purdy states they cannot read. Did not have recommendation for possible alternative imaging when discussed. Patient decided to leave [place]. He does have follow up in place and discussed that he is highly recommended to keep follow up and seek continued care. We had not received records or had reached his care team at [facility] prior to patient leaving. Supervised by Leona Osborne DO
[2020-02-25 17:00] VITALS: BP 110/72; PULSE 96; O2SAT 94
--- NOTE | 2020-02-25 17:02 | DI.RAD.S_ITS ---
PROCEDURE: XR HAND RT MIN 3V INDICATIONS: L 4th finger, r/o osteomyelitis TECHNIQUE: 3 views of the hand(s) acquired. COMPARISON: None. FINDINGS: Suboptimal evaluation due to technical reasons, probably grid artifact and underexposure Bones: No fractures or dislocations. Carpal bones are normally aligned. No suspicious bony lesions. Soft tissues: There are numerous soft tissue , probably vascular calcifications. IMPRESSION: No focal osseous destruction to suggest advanced osteomyelitis. If there is persistent clinical concern, continued short interval radiographic followup or contrast enhanced MRI could be performed to assess for early infection. Markedly suboptimal examination due to technical reasons above. Dictated by: Andrea Purdy M.D. on 02/25/2020 at 17:22 Approved by: Andrea Purdy M.D. on 02/25/2020 at 17:25
[2020-02-25 18:04] LABS: Add Manual Diff / Slide Review NO; Basophils Absolute Auto 0 /uL (0-100); Basophils Percent Auto 0.7 % (0-2); Eosinophils Absolute Auto 100 /uL (0-450); Eosinophils Percent Auto 1.4 % (2-4); Hematocrit 30.6 % (41-53); Hemoglobin 9.5 g/dL (13.5-17.5); Lymphocytes Absolute Auto 600 /uL (1100-4500); Lymphocytes Percent Auto 8.5 % (25-40); Mean Corpuscular HGB Conc 31.1 % (30-36); Mean Corpuscular Hemoglobin 27.2 PG (26-34); Mean Corpuscular Volume 87.5 fL (80-100); Monocytes Absolute Auto 400 /uL (0-900); Monocytes Percent Auto 6.3 % (3-14); Neutrophils Absolute Auto 5800 /uL (1500-7000); Neutrophils Percent Auto 83.1 % (50-75); Platelet Count 260 X10^3/uL (150-400); Red Cell Distribution Width 19.1 % (11.6-14.8)
[2020-02-25 18:15] LABS: Lactate (Lactic Acid) 1.1 mmol/L (0.7-2.1)
[2020-02-25 18:17] LABS: Alanine Aminotransferase 28 IU/L (<50); Albumin 3.9 g/dL (3.5-5.0); Albumin Globulin Ratio 1.1 (1.0-2.8); Alkaline Phosphatase 157 U/L (38-126); Aspartate Aminotransferase 27 IU/L (17-59); Bilirubin Total 0.7 mg/dL (0.2-1.3); Blood Urea Nitrogen 52 mg/dL (9-20); Calcium 9.9 mg/dL (8.4-10.2); Carbon Dioxide 29 mmol/L (22-32); Chloride 104 mmol/L (98-107); Globulin 3.7 g/dL (1.7-4.1); Glucose 102 mg/dL (80-110); HEMOLYSIS < 15 (0-50); Potassium 4.3 mmol/L (3.4-5.1); Sodium 144 mmol/L (137-145); Total Protein 7.6 g/dL (6.3-8.2)
[2020-02-25 18:20] LABS: C-Reactive Protein Quant 4.8 mg/dL (<1.0)
[2020-02-25 18:28] LABS: BUN Creatinine Ratio 6.8 (6-22); Estimated Glomerular Filt Rate 7.2 mL/min (>60)
[2020-02-25 18:37] LABS: INR 1.5 (0.9-1.3); Prothrombin Time 16.6 SECONDS (10.1-12.7)
[2020-02-25 18:40] LABS: Erythrocyte Sedimentation Rate 68 MM/HR (0-15); PTT Partial Thromboplastin Tim 32 SECONDS (26.4-36.2)
== END 2020-02-25 18:54 | disposition left against medical advice (07) ==
PROVIDERS: Emergency Provider Nurse Practitioner; Family Provider Family Medicine; PCP Physician Assistant
DX: I96 Gangrene, not elsewhere classified (principal); I25.10 Atherosclerotic heart disease of native coronary artery without angina pectoris; M79.645 Pain in left finger(s); N18.9 Chronic kidney disease, unspecified; Z99.2 Dependence on renal dialysis; Z95.5 Presence of coronary angioplasty implant and graft
CPT/HCPCS: 36415; 73130; 80053; 83605; 85025; 85610; 85651; 85730; 86140; 99281; 99284